=== PATIENT | male | born 1935 | race Caucasian/White ===

== ENCOUNTER 2024-11-30 06:49 | Outpatient (REF) | payer OTHER, SELFPAY ==
[2024-11-30 07:01] LABS: MANUAL DIFF FLAG NO
[2024-11-30 07:15] LABS: Basophils Percent Auto 0.5 % (0-2); Eosinophils Absolute Auto 0.4 X10*3/uL (0.0-0.4); Eosinophils Percent Auto 6.1 % (0-4); Hematocrit 37.3 % (42.0-52.0); Hemoglobin 12.1 g/dl (14.0-18.0); Imm Gran Abs Auto 0.02 X10*3/uL (0.00-0.03); Imm Gran Pct Auto 0.3 % (0.0-0.4); Lymphocytes Absolute Auto 1.4 X10*3/uL (1.2-4.9); Lymphocytes Percent Auto 23.4 % (20-40); Mean Corpuscular HGB Conc 32.4 g/dl (31.0-36.0); Mean Corpuscular Hemoglobin 33.2 pg (27.0-33.0); Mean Corpuscular Volume 102.2 fL (80.0-98.0); Mean Platelet Volume 10.9 fL (9.4-12.4); Monocytes Absolute Auto 0.6 X10*3/uL (0.1-1.2); Neutrophils Absolute Auto 3.5 x10*3/uL (2.0-8.3); Neutrophils Percent Auto 59.7 % (45-73); Platelet Count 156 X10*3/uL (160-400); Red Blood Count 3.65 X10*6/uL (4.60-5.80); Red Cell Distribution Width 12.3 % (11.0-16.0); White Blood Count 5.9 X10*3/uL (4.8-10.8)
[2024-11-30 07:25] LABS: Estimated Average Glucose 114 mg/dL; Hemoglobin A1c % 5.6 % (<6.0)
[2024-11-30 07:38] LABS: Alanine Aminotransferase 11 U/L (0-40); Albumin Level 3.7 g/dL (3.5-5.0); Alkaline Phosphatase 57 U/L (39-117); Anion Gap 10 (12-20); Aspartate Amino Transferase 19 U/L (5-37); Bilirubin Direct 0.4 mg/dL (0.0-0.5); Blood Urea Nitrogen 22 mg/dL (9-16); Calcium 9.4 mg/dL (8.4-10.2); Carbon Dioxide 23 mmol/L (22-29); Chloride 115 mmol/L (96-108); Estimated Glomerular Filt Rate 55; Glucose Random 109 mg/dL (60-115); Iron 113 mcg/dL (45-160); Percent Iron Saturation 54 % (15-50); Potassium 4.3 mmol/L (3.3-5.1); Sodium 144 mmol/L (135-145); Total Iron Binding Capacity 208 mcg/dL (228-428); Total Protein 5.7 g/dL (6.5-8.0); Unsaturated Iron Binding 95 ug/dL
[2024-11-30 07:54] LABS: Ferritin 72 ng/mL (20-250); Thyroid Stimulating Hormone 1.07 uIU/mL (0.32-4.0)
[2024-11-30 08:06] LABS: Folate 4.5 ng/mL (> or = 4.0); Vitamin B12 169 pg/mL (200-900)
[2024-12-04 16:33] LABS: Vitamin D 25-OH, D2 <4 ng/mL; Vitamin D 25-OH, D3 39 ng/mL; Vitamin D 25-OH, Total 39 ng/mL (30-100)
== END 2024-11-30 06:50 | disposition home or self-care (01) ==
LOC: HO.HSH2W 06:49
PROVIDERS: Visit Provider Internal Medicine
DX: N18.9 Chronic kidney disease, unspecified (principal); D63.1 Anemia in chronic kidney disease; E78.5 Hyperlipidemia, unspecified; E03.9 Hypothyroidism, unspecified; Z13.1 Encounter for screening for diabetes mellitus
CPT/HCPCS: 36415; 80053; 82248; 82306; 82607; 82728; 82746; 83036; 83540; 84443; 85025

== ENCOUNTER 2024-12-07 06:21 | Outpatient (REF) | payer OTHER, SELFPAY ==
--- OUTSIDE RECORDS SUMMARY | 2024-12-07 06:22 | XMS_ITS | Patient Health Record ---
Author Organization [facility] Address [address] [place] [id number] Care Team Providers Care Nutrition Technician Name Role Phone Dallas Pearson Primary Care Provider Thanh Schofield Jr Unavailable Allergies Allergen (clinical drug ingredient) Drug/Non Drug Allergy documented on EMR Reaction Allergy Type Onset Date Status ct contrast (uncoded) Unknown Allergy Active Reason For Referral No Information Medications Medication SIG (Take, Route, Frequency, Duration) Notes Start Date End Date Status MiraLax 17 GM 1 packet mixed with 8 ounces of fluid Orally Once a day for 30 day(s) 12/27/2023 Active Tylenol 325 MG 1 tablet as needed O rally every 6 hrs 12/27/2023 Active acetaZOLAMIDE 125 MG 1 tablet Orally Twi ce a day for 30 day(s) Active Ibqkmshp-Yzaafgayr-Gzmsykmt 0.1 % 1 application into the lower eyelid of affected eye Ophthalmic Three times a day Active Gabapentin 400 MG 1 capsule Orally Onc e a day for 30 day(s) 12/27/2023 Active Atorvastatin Calcium 40 MG 1 tablet Oral ly Once a day for 30 day(s) 12/27/2023 Active Saline Nasal [place] 0.65 % as directed Nasally 12/06 Active Vitamin D-3 25 MCG (1000 UT) 1 capsule Orally Once a day for 30 day(s) 12/27/2023 Active Aspirin 81 81 MG 1 tablet Orally Once a day for 30 day(s) 12/27/2023 Active Tamsulosin HCl 0.4 MG 1 capsule Orally O nce a day for 30 day(s) 12/27/2023 Active Omeprazole 20 MG 1 capsule 30 minutes before morning meal Orally Once a day for 30 day(s) 12/27/2023 Active Midodrine HCl 5 MG 1 tablet Orally Twic e a day for 30 day(s) 12/27/2023 Active Immunizations Vaccine Route Administration Date Status Comme nts Influenza Unknown 03/30/2023 Administered Social History Tobacco Use: Social History Observation Description Date Details (start date - stop date) Never Smoker NA - NA Tobacco Use/Smoking Question Answer Notes Patient is a nonsmoker Alcohol Screen Question Answer Notes Did you have a drink containing alcohol in the p ast year? 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 Vital Signs Temperature 97.7 degrees Fahrenheit 12/27/2023 Blood pressure diastolic 00 mm Hg 12/27/2023 Height 5 ft 8 in in 12/27/2023 Blood pressure systolic 000 mm Hg 12/27/2023 Weight 182 lbs 12/27/2023 BMI 27.67 kg/m2 12/27/2023 Encounters Encounter Location Date Provider Diagnosis [facility] [address] [place] [phone] 12/27/2023 Thanh Hawley Jr 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 Power has a history of reflux disease and Camp's esophagus. We discussed this today. There is no reported dysplasia on previous biopsies but these will be reviewed to confirm this. We discussed that at his age with his current comorbid problems endoscopic surveillance is optional, and he and his son appeared to understand this. We also discussed that if surveillance were continued and did show high-grade dysplasia or adenocarcinoma in situ, the next step would be radiofrequency ablation and/or surgery. This would be fairly high risk given his underlying medical problems, and we discussed this in detail. We will review his records and let him know if any recommendations to proceed with endoscopy change based on this. Plan Of Treatment No Information Insurance Providers Payer Name Payer Address Payer Phone Subscriber Number Group Number Insured Name Patient Relationship to Insured Coverage Start Date Coverage End Date [facility] [employer] 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
--- OUTSIDE RECORDS SUMMARY | 2024-12-07 06:22 | XMS_ITS | Continuity of Care Document ---
Author Organization [facility] Address [address] [place] [address] Phone [phone] Care Team Providers Care Geographic Analyst Name Role Phone Brooklyn Nichole Care Team Information Receive r [phone] Problems Active Problems Provider Date Hyperthyroidism Juan J Lopez M.D. Onset: Essential hypertension Juan J Lopez M.D. Ons et: 04/02/2022 Prediabetes Juan J Lopez M.D. Onset: Orthostatic hypotension Juan J Lopez M.D. On set: 04/02/2022 Hypothyroidism Juan J Lopez M.D. Onset: Atrial fibrillation Juan J Lopez M.D. Onset: 04/02/2022 Sleep apnea Juan J Lopez M.D. Onset: Asymptomatic coronary heart disease Juan J burton M.D. Onset: 04/02/2022 History of cerebrovascular accident Juan J burton M.D. Onset: 04/02/2022 Hypercholesterolemia Juan J Lopez M.D. Onset : 07/27/2023 Social History Type Date Description Comments Sex Male Sex Unknown Tobacco Use Start: Unknown Never Smoked Cigarettes Smoking Status Reviewed: 07/31/24 Never Smoked Cigaret chris ETOH Use Denies alcohol use Allergies and adverse reactions Active Allergies Criticality Reaction Severity Comments Date E-Z Scrub Povidone Iodine Unable to assess criticality 04/02/2022 Medications Active Medications SIG Qnty Indications Order ing Provider Date Triamcinolone Acetonide0.1% Ointment apply two times a day as needed 30gm Juan J Lopez M.D. 01/22/2023 Flomax0.4mg Capsules 1 every day Moustapha Lopez M.D. 04/02/2022 [id number] Capsules take 1 capsule by mouth 270ramu Lopez M.D. 04/02/2022 Atorvastatin Wmbycfg20rx Tablets 1 by mouth every day 90tatimothy Lopez M.D. 04/02/2022 Midodrine HCL5mg Tablets 1 tid Juan J Lopez M.D. 04/02/2022 Aspirin Adult Low Plcz55ls Tablets DR 1 by mouth every day Juan J Lopez M.D. 04/02/[address] 1 tab by mouth 90ramu Lopez M.D. 04/02/2022 Vital Signs Date Vital Result Comment 07/31/2024 1:15pm BP Systolic 128 mmHg BP Diastolic 60 mmHg Heart Rate 71 /min Height 68.5 inches 5'8.50 Weight 172.00 lb BMI (Body Mass Index) 25.8 kg/m2 Results Test Acquired Date Facility Test Result H/L Range N ote Glucose Fingerstick 03/27/2024 Inhouse Glucose Fingerstick 127 Glucose Fingerstick 11/25/2023 Inhouse Glucose Fingerstick 151 Glucose Fingerstick 07/27/2023 Inhouse Glucose Fingerstick 140 Glucose Fingerstick 03/26/2023 Inhouse Glucose Fingerstick 105 Glucose Fingerstick 10/08/2022 Inhouse Glucose Fingerstick 124 Glucose Fingerstick 04/02/2022 Inhouse Glucose Fingerstick 134 Medical Devices Description No Information Available Encounters Type Date Location Provider Dx Diagnosis Office Visit 07/31/2024 1:00p Main Office ELIOT Mcclure I95.1 Orthostatic hypotension E78.00 Pure hypercholestero lemia, unspecified G47.30 Sleep apnea, unspeci fied I48.91 Unspecified atrial f ibrillation 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 R73.03 Prediabetes G62.9 Polyneuropathy, unsp 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 G47.33 Obstructive sleep ap carlos (adult) (pediatric) Assessments Date Code Description Provider 07/31/2024 I95.1 Orthostatic hypotension ELIOT Parker 07/31/2024 E78.00 Hypercholesterolemia ELIOT Mcclure 07/31/2024 G47.30 Sleep apnea ELIOT Mcclure 07/31/2024 I48.91 Atrial fibrillation ELIOT Brooks 07/31/2024 E05.01 Graves' disease ELIOT Gonsalves 07/31/2024 R73.03 Prediabetes ELIOT Mcclure 07/31/2024 G62.9 Polyneuropathy, unspecified ELIOT Mcclure 07/31/2024 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 ELIOT Mcclure 07/31/2024 G47.33 Obstructive sleep apnea (thuy lt) (pediatric) ELIOT Mcclure Plan of Treatment Future Appointment(s):* 01/29/2025 1:00 pm - Camila Haywood, CONFIGURATION MANAGEMENT ADMINISTRATOR at Main Office 07/31/2024 - ELIOT Mcclure* I95.1 Orthostatic hypotension * E78.00 Hypercholesterolemia * G47.30 Sleep apnea * I48.91 Atrial fibrillation * E05.01 Graves' disease * R73.03 Prediabetes * G62.9 Polyneuropathy, unspecified * 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
[2024-12-07 07:01] LABS: Cholesterol 133 mg/dL (<200); HDL Cholesterol 43 mg/dL (>40); Triglycerides 81 mg/dL (<150)
== END 2024-12-07 06:22 | disposition home or self-care (01) ==
LOC: HO.HSH2W 06:21
PROVIDERS: Visit Provider Internal Medicine
DX: I10 Essential (primary) hypertension (principal); D64.9 Anemia, unspecified
CPT/HCPCS: 36415; 80061

== ENCOUNTER 2025-02-16 06:41 | Outpatient (REF) | payer OTHER, SELFPAY ==
--- OUTSIDE RECORDS SUMMARY | 2025-02-16 06:45 | XMS_ITS | Patient Health Record ---
Author Organization [facility] Address [address] [place] [phone] Care Team Providers Care Sugar Cane Grower Name Role Phone Dallas Pearson Primary Care Provider Thanh Schofield Jr Unavailable [phone] Allergies Allergen (clinical drug ingredient) Drug/Non Drug [...] ce a day for 30 day(s) Active Mhguyfbk-Nmtsyzesm-Lnfiwmqm 0.1 % 1 application into the lower eyelid of affected eye Ophthalmic Three times a day Active Gabapentin 400 MG 1 capsule Orally Onc e a day for 30 day(s) 12/27/2023 Active Atorvastatin Calcium 40 MG 1 tablet Oral ly Once a day for 30 day(s) 12/27/2023 Active Saline Nasal [place] 0.65 % as directed Nasally 12/06 Active [...] Problem Status W/U Status Risk Notes Problem [id number] 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
--- OUTSIDE RECORDS SUMMARY | 2025-02-16 06:45 | XMS_ITS | Continuity of Care Document ---
Author Organization [facility] [address] [place] [address] Phone [phone] Care Team Providers Care Out Of School Hours Care Worker Name Role Phone Camila Haywood MED ASST Care Team Informatio n Collections And Archives Director [phone] Problems Active Problems Provider Date Hyperthyroidism Juan [...] 1 every day Moustapha Lopez M.D. 04/02/2022 Runfeksjdl974ie Capsules take 1 capsule by mouth 270ramu Lopez M.D. 04/02/2022 Atorvastatin Izdfybo73zs Tablets 1 by mouth every day 90tatimothy Lopez M.D. 04/02/2022 Midodrine HCL5mg Tablets 1 tid Juan J Lopez M.D. 04/02/2022 Aspirin Adult Low Aqzp75rj Tablets DR 1 by mouth every day Juan J Lopez M.D. 04/02/[address] 1 tab by mouth 90ramu [...] Glucose Fingerstick 04/02/2022 Inhouse Glucose Fingerstick 134 Procedures Date Code Description Status 01/29/2025 NSHOWOFF No Show Office Visit Complet ed Medical Devices Description No Information Available Encounters [...] ELIOT Mcclure Plan of Treatment Future Appointment(s):* 02/23/2025 11:20 am - Camila Haywood MED ASST at Main Office 07/31/2024 - ELIOT Mcclure* [...]
[2025-02-16 07:05] LABS: Hematocrit 37.4 % (42.0-52.0); Hemoglobin 12.6 g/dl (14.0-18.0); Imm Gran Abs Auto 0.02 X10*3/uL (0.00-0.03); Imm Gran Pct Auto 0.3 % (0.0-0.4); Lymphocytes Absolute Auto 1.7 X10*3/uL (1.2-4.9); MANUAL DIFF FLAG NO; Mean Corpuscular HGB Conc 33.7 g/dl (31.0-36.0); Mean Corpuscular Hemoglobin 33.5 pg (27.0-33.0); Mean Corpuscular Volume 99.5 fL (80.0-98.0); NRBC Abs Auto 0.000 X10*3/uL (0.0-0.012); NRBC Pct Auto 0.0 /100WBC (0.0-0.2); Platelet Count 180 X10*3/uL (160-400); Red Blood Count 3.76 X10*6/uL (4.60-5.80); Reticulocytes Absolute 0.069 X10*6/uL (0.026-0.095); White Blood Count 5.9 X10*3/uL (4.8-10.8)
[2025-02-16 07:35] LABS: Alanine Aminotransferase 20 U/L (0-40); Albumin Level 3.6 g/dL (3.5-5.0); Alkaline Phosphatase 74 U/L (39-117); Anion Gap 11 (12-20); Aspartate Amino Transferase 23 U/L (5-37); Blood Urea Nitrogen 32 mg/dL (9-16); Calcium 8.5 mg/dL (8.4-10.2); Carbon Dioxide 20 mmol/L (22-29); Chloride 115 mmol/L (96-108); Estimated Glomerular Filt Rate 58; Potassium 3.9 mmol/L (3.3-5.1); Sodium 142 mmol/L (135-145); Total Protein 5.8 g/dL (6.5-8.0)
== END 2025-02-16 06:42 | disposition home or self-care (01) ==
LOC: HO.HSH2W 06:41
PROVIDERS: Visit Provider Internal Medicine
DX: D64.9 Anemia, unspecified (principal); N18.30 Chronic kidney disease, stage 3 unspecified
CPT/HCPCS: 36415; 80053; 85025; 85045

== ENCOUNTER 2025-05-18 13:46 | Outpatient (REF) | payer OTHER, SELFPAY ==
[2025-05-18 14:18] LABS: Troponin-I High Sensitivity 7.6 ng/L (<3.5-35.0)
== END 2025-05-18 13:47 | disposition home or self-care (01) ==
LOC: HO.HSH2W 13:46
PROVIDERS: Visit Provider Internal Medicine
DX: R00.1 Bradycardia, unspecified (principal)
CPT/HCPCS: 36415; 84484